=== PATIENT | female | born 1935 | race Asian ===

== ENCOUNTER 2021-11-25 16:52 | Inpatient (IN) | payer MEDICARE, OTHER ==
[~2021-11-25] VITALS: Ht 154.9 cm; Wt 57.6 kg
[2021-11-25] MEDS ORDERED: CEFEPIME 1 GM in IV D5W 50 ML IV ONE ×2 (18:00→21:00)
[2021-11-25] MEDS ORDERED: IV NS 0.9% 500 ML BAG IV ONE ×3 (18:00→21:00)
[2021-11-25] MEDS ORDERED: FLAGYL/NS RTU 500 MG/100 ML PIGGYBACK IV ONE (18:00)
[2021-11-25] MEDS ORDERED: IV LR 1000 ML 1,000 ML BAG IV ONE (18:00)
[2021-11-25] MEDS ORDERED: LIPA1CAP15 PO (18:07)
[2021-11-25] MEDS ORDERED: CELE-85 PO (18:07)
[2021-11-25] MEDS ORDERED: SITA1TAB6 PO (18:07)
[2021-11-25] MEDS ORDERED: OMEG1CAP55 PO (18:07)
[2021-11-25] MEDS ORDERED: ALEN70TA80 PO (18:07)
[2021-11-25] MEDS ORDERED: OMEP20CA15 PO (18:07)
[2021-11-25] MEDS ORDERED: METO25TA4 PO (18:07)
[2021-11-25] MEDS ORDERED: ASPI-1420 PO (18:07)
[2021-11-25] MEDS ORDERED: LEVO5TAB13 PO (18:07)
[2021-11-25] MEDS ORDERED: DICL100G34 TP (18:07)
[2021-11-25 18:17] LABS: HEMATOCRIT 34 % (33-45); HEMOGLOBIN 11.4 g/dL (11.5-14.8); LYMPHOCYTES # (AUTO) 0.1 K/uL (0.8-4.8); LYMPHOCYTES % (AUTO) 2.3 % (20.0-44.0); MEAN CORPUSCULAR HGB CONC 34 g/dl (31.0-36.0); MEAN CORPUSCULAR VOLUME 99 fL (82-100); MONOCYTES # (AUTO) 0.1 K/uL (0.1-1.30); MONOCYTES % (AUTO) 1.3 % (2.0-12.0); NEUTROPHILS # (AUTO) 5.6 K/uL (1.8-8.9); NEUTROPHILS % (AUTO) 96.4 % (43.0-81.0); PLATELET COUNT (AUTO) 128 K/uL (150-450); RED BLOOD CELL COUNT(AUTO) 3.39 MIL/uL (4.0-5.2); WHITE BLOOD COUNT (AUTO) 5.8 K/uL (4.3-11.0)
[2021-11-25] MEDS ORDERED: METRONIDAZOLE 500MG/ NS 100ML 500 MG in PREMIX 1 EA IV ONE (18:30)
[2021-11-25 18:40] LABS: CALCIUM, SERUM 8.3 mg/dL (8.5-10.1); CREATININE 1.2 mg/dL (0.6-1.3); POTASSIUM 3.2 mmol/L (3.5-5.1)
[2021-11-25 18:45] LABS: BILIRUBIN,DIRECT 4.3 mg/dL (0.0-0.2); BILIRUBIN,TOTAL 5.2 mg/dL (0.2-1.0); TOTAL PROTEIN, SERUM 6.3 g/dL (6.4-8.2)
[2021-11-25] MEDS ORDERED: IOHEXOL-300 100 ML VIAL IV ONE (19:17)
[2021-11-25 19:52] LABS: BILIRUBIN,URINE SMALL (NEGATIVE); COLOR,URINE YELLOW (YELLOW); LEUKOCYTE ESTERASE ,URINE NEGATIVE (NEGATIVE); NITRITE, URINE NEGATIVE (NEGATIVE); PH,URINE 6.5 (5.0-8.0); PROTEIN,URINE NEGATIVE (NEGATIVE); UGLUCOSE NEGATIVE (NEGATIVE)
[2021-11-25 20:09] LABS: BACTERIA,URINE None seen /HPF (None Seen); RBC,URINE 0-2 /HPF (0-2); SQUAMOUS EPITHELIAL CELL,UR 0-2 /HPF (None Seen); WBC,URINE 0-2 /HPF (0-3)
[2021-11-25] MEDS ORDERED: CEFEPIME 1 GM VIAL ONE (20:59)
[2021-11-25] MEDS ORDERED: NOREPINEPHRINE 4 MG/4 ML AMPUL IV ONE ×2 (21:27→21:32)
[2021-11-25] MEDS ORDERED: Z GUARD REMEDY 4 OZ OINT TP PRN (21:30)
[2021-11-25] MEDS ORDERED: ACETAMINOPHEN 325 MG TABLET PO PRN (21:30)
[2021-11-25] MEDS ORDERED: ONDANSETRON HCL/PF 4 MG/2 ML VIAL IVP PRN (21:30)
[2021-11-25] MEDS ORDERED: MAG HYDROX/AL HYDROX/SIMETH 30 ML UDC PO PRN (21:30)
[2021-11-25] MEDS ORDERED: NOREPINEPHRINE 8 MG in IV NS 0.9% 242 ML IV PRN (21:30)
[2021-11-25] MEDS ORDERED: DEXTROSE 50%-WATER 50 ML DISP.SYRIN IV PRN (21:30)
[2021-11-25] MEDS ORDERED: MAGNESIUM HYDROXIDE 30 ML UDC PO PRN (21:30)
[2021-11-25] MEDS ORDERED: ENOXAPARIN SODIUM 40 MG/0.4 ML DISP.SYRIN SQ ONE (21:51)
[2021-11-25] MEDS: BLOOD SUGAR DIAGNOSTIC 1 EACH STRIP IN SCH (21:55)
[2021-11-25] MEDS: ENOXAPARIN SODIUM 30 MG/0.3 ML DISP.SYRIN SQ SCH ×2 (21:56→23:04)
[2021-11-25] MEDS: NOREPINEPHRINE 8 MG in IV NS 0.9% 242 ML IV PRN (22:45)
[2021-11-25] MEDS: IV LR 1000 ML 1,000 ML IV PRN (22:51)
[2021-11-25 23:00] VITALS: BP 103/66
[2021-11-25 23:15] VITALS: BP 99/60
[2021-11-25 23:30] VITALS: BP 116/67
[2021-11-25 23:45] VITALS: BP 107/63
[2021-11-26] VITALS (88 sets, daily range): BP systolic 61–152; BP diastolic 21–83
[2021-11-26] MEDS ORDERED: METRONIDAZOLE 500MG/ NS 100ML 100 ML IV ONE ×2 (00:01→04:53)
[2021-11-26] MEDS: METRONIDAZOLE 500MG/ NS 100ML 500 MG in PREMIX 1 EA IV SCH ×3 (00:05→12:26)
[2021-11-26 05:09] LABS: BASOPHILS % (AUTO) 0.2 % (0.0-2.0); EOSINOPHILS % (AUTO) 0.2 % (0.0-6.0); HEMATOCRIT 32 % (33-45); HEMOGLOBIN 10.9 g/dL (11.5-14.8); LYMPHOCYTES # (AUTO) 0.8 K/uL (0.8-4.8); MEAN CORPUSCULAR HGB CONC 34 g/dl (31.0-36.0); MEAN CORPUSCULAR VOLUME 100 fL (82-100); MONOCYTES % (AUTO) 6.5 % (2.0-12.0); NEUTROPHILS # (AUTO) 13.5 K/uL (1.8-8.9); NEUTROPHILS % (AUTO) 88.1 % (43.0-81.0); PLATELET COUNT (AUTO) 143 K/uL (150-450); RED BLOOD CELL COUNT(AUTO) 3.22 MIL/uL (4.0-5.2); WHITE BLOOD COUNT (AUTO) 15.3 K/uL (4.3-11.0)
[2021-11-26 05:34] LABS: CHOLESTEROL 108 mg/dL (<200); HDL CHOLESTEROL 59 mg/dL (40-60); LDL 47 mg/dL (0-99); TRIGLYCERIDES 45 mg/dL (30-150)
[2021-11-26 05:39] LABS: ALANINE AMINOTRANSFERASE 154 U/L (12-78); ALBUMIN 2.4 g/dL (3.4-5.0); ALKALINE PHOSPHATASE 250 U/L (46-116); ASPARTATE AMINOTRANSFERASE 195 U/L (15-37); BILIRUBIN,TOTAL 6.1 mg/dL (0.2-1.0); CALCIUM, SERUM 8.5 mg/dL (8.5-10.1); CARBON DIOXIDE 25 mmol/L (21-32); CHLORIDE 107 mmol/L (98-107); GLUCOSE 146 mg/dL (74-106); MAGNESIUM 1.8 mg/dL (1.8-2.4); PHOSPHORUS 3.4 mg/dL (2.5-4.9); POTASSIUM 3.2 mmol/L (3.5-5.1); SODIUM SERUM 139 mmol/L (136-145); TOTAL PROTEIN, SERUM 5.4 g/dL (6.4-8.2); UREA NITROGEN, BLOOD 11 mg/dL (7-18)
[2021-11-26] MEDS: BLOOD SUGAR DIAGNOSTIC 1 EACH STRIP IN SCH ×4 (07:27→21:26)
[2021-11-26] MEDS: PANTOPRAZOLE 40 MG VIAL IV SCH (08:20)
[2021-11-26] MEDS: POTASSIUM CL. PREMIX PERIPHER. 50 ML IV SCH ×4 (08:21→12:08)
[2021-11-26] MEDS: IV LR 1000 ML 1,000 ML IV PRN ×2 (08:36→18:29)
[2021-11-26] MEDS ORDERED: ANESTHESIA TRAY IN PYXIS 1 EA TRAY MC ONE (09:04)
[2021-11-26] MEDS ORDERED: IOHEXOL 240MG/ML 50 ML IV ONE (09:04)
[2021-11-26] MEDS ORDERED: INDOMETHACIN 50 MG SUPP.RECT ONE (09:05)
[2021-11-26] MEDS: ZOSYN IVPB 3.375 G in IV D5W 50ml IV SCH ×2 (17:02→23:00)
[2021-11-26] MEDS ORDERED: CEFEPIME 1 GM in IV D5W 50 ML IV SCH (21:00)
[2021-11-26] MEDS: ENOXAPARIN SODIUM 30 MG/0.3 ML DISP.SYRIN SQ SCH (21:02)
[2021-11-26] MEDS: NOREPINEPHRINE 8 MG in IV NS 0.9% 242 ML IV PRN (21:02)
[2021-11-27] VITALS (64 sets, daily range): BP systolic 89–140; BP diastolic 21–77
[2021-11-27] MEDS: IV LR 1000 ML 1,000 ML IV PRN ×3 (03:12→21:00)
[2021-11-27 04:57] LABS: BASOPHILS % (AUTO) 0.2 % (0.0-2.0); EOSINOPHILS % (AUTO) 1.9 % (0.0-6.0); HEMATOCRIT 28 % (33-45); HEMOGLOBIN 9.4 g/dL (11.5-14.8); LYMPHOCYTES # (AUTO) 0.6 K/uL (0.8-4.8); LYMPHOCYTES % (AUTO) 8.7 % (20.0-44.0); MEAN CORPUSCULAR HGB CONC 34 g/dl (31.0-36.0); MEAN CORPUSCULAR VOLUME 103 fL (82-100); MONOCYTES # (AUTO) 0.5 K/uL (0.1-1.30); MONOCYTES % (AUTO) 6.9 % (2.0-12.0); NEUTROPHILS # (AUTO) 6.1 K/uL (1.8-8.9); NEUTROPHILS % (AUTO) 82.3 % (43.0-81.0); PLATELET COUNT (AUTO) 110 K/uL (150-450); RED BLOOD CELL COUNT(AUTO) 2.71 MIL/uL (4.0-5.2); WHITE BLOOD COUNT (AUTO) 7.4 K/uL (4.3-11.0)
[2021-11-27 05:10] LABS: ALANINE AMINOTRANSFERASE 89 U/L (12-78); ALKALINE PHOSPHATASE 207 U/L (46-116); ASPARTATE AMINOTRANSFERASE 83 U/L (15-37); BILIRUBIN,DIRECT 5.8 mg/dL (0.0-0.2); BILIRUBIN,TOTAL 6.5 mg/dL (0.2-1.0); CALCIUM, SERUM 8.2 mg/dL (8.5-10.1); CARBON DIOXIDE 22 mmol/L (21-32); CHLORIDE 108 mmol/L (98-107); CREATININE 0.9 mg/dL (0.6-1.3); GLUCOSE 84 mg/dL (74-106); PHOSPHORUS 2.4 mg/dL (2.5-4.9); POTASSIUM 3.5 mmol/L (3.5-5.1); SODIUM SERUM 141 mmol/L (136-145); TOTAL PROTEIN, SERUM 4.8 g/dL (6.4-8.2); UREA NITROGEN, BLOOD 14 mg/dL (7-18)
[2021-11-27] MEDS: ZOSYN IVPB 3.375 G in IV D5W 50ml IV SCH ×3 (05:55→18:02)
[2021-11-27] MEDS: BLOOD SUGAR DIAGNOSTIC 1 EACH STRIP IN SCH ×4 (08:11→21:00)
[2021-11-27] MEDS: PANTOPRAZOLE 40 MG VIAL IV SCH (10:04)
[2021-11-27] MEDS ORDERED: Sodium Phosphate 15 MMOL in IV NS 0.9% 245 ML IV SCH (14:30)
[2021-11-27] MEDS: ENOXAPARIN SODIUM 30 MG/0.3 ML DISP.SYRIN SQ SCH (21:03)
[2021-11-28] VITALS (20 sets, daily range): BP systolic 95–153; BP diastolic 67–93
[2021-11-28] MEDS: ZOSYN IVPB 3.375 G in IV D5W 50ml IV SCH ×4 (00:45→17:50)
[2021-11-28 04:38] LABS: BASOPHILS % (AUTO) 0.4 % (0.0-2.0); EOSINOPHILS % (AUTO) 2.5 % (0.0-6.0); HEMATOCRIT 25 % (33-45); HEMOGLOBIN 8.3 g/dL (11.5-14.8); LYMPHOCYTES # (AUTO) 0.6 K/uL (0.8-4.8); LYMPHOCYTES % (AUTO) 8.8 % (20.0-44.0); MEAN CORPUSCULAR HGB CONC 34 g/dl (31.0-36.0); MEAN CORPUSCULAR VOLUME 102 fL (82-100); MONOCYTES # (AUTO) 0.6 K/uL (0.1-1.30); MONOCYTES % (AUTO) 8.5 % (2.0-12.0); NEUTROPHILS # (AUTO) 5.5 K/uL (1.8-8.9); NEUTROPHILS % (AUTO) 79.8 % (43.0-81.0); PLATELET COUNT (AUTO) 106 K/uL (150-450); RED BLOOD CELL COUNT(AUTO) 2.43 MIL/uL (4.0-5.2); WHITE BLOOD COUNT (AUTO) 6.9 K/uL (4.3-11.0)
[2021-11-28] MEDS: IV LR 1000 ML 1,000 ML IV PRN ×2 (04:56→14:07)
[2021-11-28] MEDS: HYDROCODONE/APAP 5/325MG TABLET PO PRN ×3 (06:14→20:12)
[2021-11-28 06:35] LABS: ALBUMIN 1.9 g/dL (3.4-5.0); BILIRUBIN,DIRECT 1.9 mg/dL (0.0-0.2); BILIRUBIN,TOTAL 2.4 mg/dL (0.2-1.0); CALCIUM, SERUM 7.7 mg/dL (8.5-10.1); CREATININE 0.9 mg/dL (0.6-1.3); PHOSPHORUS 1.9 mg/dL (2.5-4.9); POTASSIUM 3.5 mmol/L (3.5-5.1); TOTAL PROTEIN, SERUM 4.7 g/dL (6.4-8.2)
[2021-11-28] MEDS: BLOOD SUGAR DIAGNOSTIC 1 EACH STRIP IN SCH ×4 (08:15→22:39)
[2021-11-28] MEDS: MORPHINE SULFATE INJ 2 MG/ML DISP.SYRIN IV PRN (08:31)
[2021-11-28] MEDS: PANTOPRAZOLE 40 MG VIAL IV SCH (09:04)
[2021-11-28] MEDS ORDERED: K PHOS NEUTRAL 250 MG TABLET PO ONE (11:00)
[2021-11-28] MEDS: INSULIN REGULAR, HUMAN 100 UNIT/ML 3 ML VIAL SQ PRN (11:52)
[2021-11-28 16:31] LABS: OCCULT BLOOD STOOL POSITIVE (NEGATIVE)
[2021-11-28] MEDS: ENOXAPARIN SODIUM 30 MG/0.3 ML DISP.SYRIN SQ SCH (21:59)
[2021-11-29] MEDS: IV LR 1000 ML 1,000 ML IV PRN (00:35)
[2021-11-29] MEDS: ZOSYN IVPB 3.375 G in IV D5W 50ml IV SCH ×5 (00:35→23:06)
[2021-11-29] MEDS: MORPHINE SULFATE INJ 2 MG/ML DISP.SYRIN IV PRN (01:03)
[2021-11-29 06:48] LABS: BASOPHILS % (AUTO) 0.5 % (0.0-2.0); EOSINOPHILS % (AUTO) 3.4 % (0.0-6.0); HEMATOCRIT 27 % (33-45); LYMPHOCYTES # (AUTO) 1.2 K/uL (0.8-4.8); LYMPHOCYTES % (AUTO) 20.5 % (20.0-44.0); MEAN CORPUSCULAR HGB CONC 34 g/dl (31.0-36.0); MEAN CORPUSCULAR VOLUME 101 fL (82-100); MONOCYTES # (AUTO) 0.6 K/uL (0.1-1.30); MONOCYTES % (AUTO) 10.1 % (2.0-12.0); NEUTROPHILS % (AUTO) 65.5 % (43.0-81.0); PLATELET COUNT (AUTO) 124 K/uL (150-450); RED BLOOD CELL COUNT(AUTO) 2.62 MIL/uL (4.0-5.2); WHITE BLOOD COUNT (AUTO) 6.1 K/uL (4.3-11.0)
[2021-11-29 07:17] LABS: ALBUMIN 2.1 g/dL (3.4-5.0); BILIRUBIN,DIRECT 2.9 mg/dL (0.0-0.2); BILIRUBIN,TOTAL 3.5 mg/dL (0.2-1.0); CALCIUM, SERUM 8.3 mg/dL (8.5-10.1); CREATININE 0.7 mg/dL (0.6-1.3); POTASSIUM 3.2 mmol/L (3.5-5.1); TOTAL PROTEIN, SERUM 5.2 g/dL (6.4-8.2)
[2021-11-29 08:00] VITALS: BP 113/69
[2021-11-29] MEDS: PANTOPRAZOLE 40 MG VIAL IV SCH (08:19)
[2021-11-29] MEDS: BLOOD SUGAR DIAGNOSTIC 1 EACH STRIP IN SCH ×4 (08:20→21:46)
[2021-11-29] MEDS ORDERED: POTASSIUM CHLORIDE 20 MEQ TAB.PRT.SR PO SCH (09:30)
[2021-11-29] MEDS ORDERED: K PHOS NEUTRAL 250 MG TABLET PO ONE (10:00)
[2021-11-29 11:47] VITALS: BP 97/49
[2021-11-29 16:00] VITALS: BP 123/75
[2021-11-29 20:53] VITALS: BP 116/72
[2021-11-29] MEDS: ENOXAPARIN SODIUM 30 MG/0.3 ML DISP.SYRIN SQ SCH (21:00)
[2021-11-29] MEDS: INSULIN REGULAR, HUMAN 100 UNIT/ML 3 ML VIAL SQ PRN (21:46)
[2021-11-30 00:40] VITALS: BP 113/62
[2021-11-30 04:36] VITALS: BP 119/64
[2021-11-30] MEDS: ZOSYN IVPB 3.375 G in IV D5W 50ml IV SCH ×4 (05:01→23:49)
[2021-11-30] MEDS: INSULIN REGULAR, HUMAN 100 UNIT/ML 3 ML VIAL SQ PRN ×4 (06:47→21:33)
[2021-11-30] MEDS: BLOOD SUGAR DIAGNOSTIC 1 EACH STRIP IN SCH ×4 (06:47→21:32)
[2021-11-30 07:20] LABS: BASOPHILS % (AUTO) 0.4 % (0.0-2.0); EOSINOPHILS % (AUTO) 4.4 % (0.0-6.0); HEMATOCRIT 23 % (33-45); LYMPHOCYTES # (AUTO) 1.1 K/uL (0.8-4.8); LYMPHOCYTES % (AUTO) 17.2 % (20.0-44.0); MEAN CORPUSCULAR HGB CONC 35 g/dl (31.0-36.0); MEAN CORPUSCULAR VOLUME 104 fL (82-100); MONOCYTES # (AUTO) 0.8 K/uL (0.1-1.30); MONOCYTES % (AUTO) 12.5 % (2.0-12.0); NEUTROPHILS # (AUTO) 4.3 K/uL (1.8-8.9); NEUTROPHILS % (AUTO) 65.5 % (43.0-81.0); PLATELET COUNT (AUTO) 149 K/uL (150-450); RED BLOOD CELL COUNT(AUTO) 2.22 MIL/uL (4.0-5.2); WHITE BLOOD COUNT (AUTO) 6.6 K/uL (4.3-11.0)
[2021-11-30 08:00] VITALS: BP 131/71
[2021-11-30 08:15] LABS: CALCIUM, SERUM 7.7 mg/dL (8.5-10.1); CREATININE 0.7 mg/dL (0.6-1.3); MAGNESIUM 1.7 mg/dL (1.8-2.4); PHOSPHORUS 2.3 mg/dL (2.5-4.9); POTASSIUM 3.4 mmol/L (3.5-5.1)
[2021-11-30] MEDS: PANTOPRAZOLE 40 MG TABLET.DR PO SCH (09:05)
[2021-11-30] MEDS: Magnesium 1GM/D5W 100ML PREMIX 100 ML IV SCH ×10 (09:48→18:20)
[2021-11-30] MEDS: POTASSIUM PHOSPHATE MM 7.5 MMOL in IV NS 0.9% 100 ML IV SCH ×2 (10:24→13:02)
[2021-11-30 16:00] VITALS: BP 113/70
[2021-11-30 20:00] VITALS: BP 118/68
[2021-11-30] MEDS: ENOXAPARIN SODIUM 30 MG/0.3 ML DISP.SYRIN SQ SCH (21:00)
[2021-11-30 21:14] LABS: CALCIUM, SERUM 7.7 mg/dL (8.5-10.1); CREATININE 0.8 mg/dL (0.6-1.3)
[2021-12-01] VITALS: BP 126/69
[2021-12-01 04:00] VITALS: BP 134/71
[2021-12-01] MEDS: ZOSYN IVPB 3.375 G in IV D5W 50ml IV SCH ×4 (05:43→23:01)
[2021-12-01] MEDS: INSULIN REGULAR, HUMAN 100 UNIT/ML 3 ML VIAL SQ PRN ×3 (06:42→22:19)
[2021-12-01] MEDS: BLOOD SUGAR DIAGNOSTIC 1 EACH STRIP IN SCH ×4 (06:43→22:18)
[2021-12-01 08:00] VITALS: BP 126/72
[2021-12-01] MEDS: PANTOPRAZOLE 40 MG TABLET.DR PO SCH (08:26)
[2021-12-01 08:27] LABS: BASOPHILS % (AUTO) 0.6 % (0.0-2.0); EOSINOPHILS % (AUTO) 4.3 % (0.0-6.0); HEMATOCRIT 24 % (33-45); HEMOGLOBIN 8.3 g/dL (11.5-14.8); LYMPHOCYTES # (AUTO) 1.2 K/uL (0.8-4.8); LYMPHOCYTES % (AUTO) 17.2 % (20.0-44.0); MEAN CORPUSCULAR HGB CONC 34 g/dl (31.0-36.0); MEAN CORPUSCULAR VOLUME 101 fL (82-100); MONOCYTES # (AUTO) 0.7 K/uL (0.1-1.30); MONOCYTES % (AUTO) 10.9 % (2.0-12.0); NEUTROPHILS # (AUTO) 4.6 K/uL (1.8-8.9); PLATELET COUNT (AUTO) 195 K/uL (150-450); RED BLOOD CELL COUNT(AUTO) 2.41 MIL/uL (4.0-5.2); WHITE BLOOD COUNT (AUTO) 6.9 K/uL (4.3-11.0)
[2021-12-01 08:38] LABS: ALBUMIN 2.1 g/dL (3.4-5.0); BILIRUBIN,TOTAL 1.3 mg/dL (0.2-1.0); CALCIUM, SERUM 8.2 mg/dL (8.5-10.1); CREATININE 0.8 mg/dL (0.6-1.3); POTASSIUM 2.9 mmol/L (3.5-5.1); TOTAL PROTEIN, SERUM 5.3 g/dL (6.4-8.2)
[2021-12-01] MEDS: POTASSIUM CHLORIDE 20 MEQ TAB.PRT.SR PO SCH ×3 (11:01→14:15)
[2021-12-01 12:00] VITALS: BP 136/80
[2021-12-01 16:00] VITALS: BP 124/69
[2021-12-01 20:00] VITALS: BP 111/66
[2021-12-02] VITALS: BP 129/68
[2021-12-02 04:00] VITALS: BP 127/86
[2021-12-02] MEDS: ZOSYN IVPB 3.375 G in IV D5W 50ml IV SCH ×2 (05:00→11:38)
[2021-12-02] MEDS: BLOOD SUGAR DIAGNOSTIC 1 EACH STRIP IN SCH ×2 (06:51→11:38)
[2021-12-02] MEDS: INSULIN REGULAR, HUMAN 100 UNIT/ML 3 ML VIAL SQ PRN ×2 (06:52→11:38)
[2021-12-02 07:03] VITALS: BP 127/86
[2021-12-02 08:00] VITALS: BP 129/74
[2021-12-02] MEDS: PANTOPRAZOLE 40 MG TABLET.DR PO SCH (08:04)
[2021-12-02 08:34] LABS: CALCIUM, SERUM 8.4 mg/dL (8.5-10.1); CREATININE 0.9 mg/dL (0.6-1.3); PHOSPHORUS 2.6 mg/dL (2.5-4.9); POTASSIUM 3.6 mmol/L (3.5-5.1)
[2021-12-02 09:14] LABS: ALBUMIN 2.3 g/dL (3.4-5.0); BILIRUBIN,TOTAL 1.2 mg/dL (0.2-1.0); TOTAL PROTEIN, SERUM 5.6 g/dL (6.4-8.2)
[2021-12-02 09:25] LABS: BILIRUBIN,DIRECT 0.9 mg/dL (0.0-0.2)
[2021-12-02 12:00] VITALS: BP 114/70
== END 2021-12-02 14:30 | disposition home health service (06) | DRG 871 ==
LOC: ER 16:55 → ICU 22:12 → TELE 11-28 16:30 → MED 11-30 10:49 → TELE 11-30 22:03 → MED 12-02 12:55
PROVIDERS: ADMIT Hospitalist; ATTEND Internal Medicine
PROC: 02HV33Z Insertion of Infusion Device into Superior Vena Cava, Percutaneous Approach (ICD-10-PCS; principal; 2021-11-26)
PROC: B548ZZA Ultrasonography of Superior Vena Cava, Guidance (ICD-10-PCS; 2021-11-26)
PROC: 0F798DZ Dilation of Common Bile Duct with Intraluminal Device, Via Natural or Artificial Opening Endoscopic (ICD-10-PCS; 2021-11-26)
DX: A41.9 Sepsis, unspecified organism (principal); R65.21 Severe sepsis with septic shock; K85.10 Biliary acute pancreatitis without necrosis or infection; E44.1 Mild protein-calorie malnutrition; E87.1 Hypo-osmolality and hyponatremia; K80.46 Calculus of bile duct with acute and chronic cholecystitis without obstruction; K92.1 Melena; E87.2 Acidosis; E78.5 Hyperlipidemia, unspecified; K57.50 Diverticulosis of both small and large intestine without perforation or abscess without bleeding; E87.6 Hypokalemia; Z90.49 Acquired absence of other specified parts of digestive tract; Z79.82 Long term (current) use of aspirin; Z79.83 Long term (current) use of bisphosphonates; Z79.84 Long term (current) use of oral hypoglycemic drugs; Z79.899 Other long term (current) drug therapy; E11.9 Type 2 diabetes mellitus without complications; E88.09 Other disorders of plasma-protein metabolism, not elsewhere classified; R74.01 Elevation of levels of liver transaminase levels; K42.9 Umbilical hernia without obstruction or gangrene; Z20.822 Contact with and (suspected) exposure to COVID-19; D64.9 Anemia, unspecified; I86.4 Gastric varices; M43.17 Spondylolisthesis, lumbosacral region
CPT/HCPCS: 36415; 36569; 71045-TC; 76705-TC; 80048-TC; 80053-TC; 80061-TC; 80076-TC; 81001; 82272-TC; 82533; 82962-TC; 83605-TC; 83690-TC; 83735-TC; 84100-TC; 84478-TC; 84484-TC; 85025-TC; 85610-TC; 85730-TC; 87040-TC; 87081-TC; 93307-TC; 97116-TC; 97530-TC; A4216; A9563; C9113; G0378; J0690; J0692; J1650; J1815; J2270; J2405; J2543; J2704; J3475; J3480; J3490; J7030; J7040; J7050; J7060; J7120; Q9966; Q9967